=== PATIENT | female | born 2000 | race Hispanic/Latino ===

== ENCOUNTER 2020-07-06 19:36 | Emergency (ER) | payer OTHER ==
[2020-07-06] MEDS ORDERED: LIDOCAINE HCL-MPF 1% 2ML VIAL ONE (19:53)
[2020-07-06] MEDS ORDERED: KETOROLAC TROMETHAMINE 30MG/ML ONE (19:53)
[2020-07-06] MEDS ORDERED: CEFTRIAXONE SODIUM 1 GM ONE (19:53)
[2020-07-06] MEDS ORDERED: IBUPROFEN 400 MG TABLET ONE (20:04)
== END 2020-07-06 20:36 | disposition home or self-care (01) ==
LOC: EDH 19:36
DX: K02.9 Dental caries, unspecified (principal)
CPT/HCPCS: 99283; J0696; J1885; J3490